=== PATIENT | female | born 1965 | race Caucasian/White ===

== ENCOUNTER 2019-01-30 05:22 | Day surgery (SDC) ==
--- NOTE | 2019-01-23 08:53 | EKG Report ---
Test Performed on : 01/23/2019 08:41:10 AM Test Reason : pat Blood Pressure : / mmHG Vent. Rate : 083 BPM Atrial Rate : 083 BPM P-R Int : 146 ms QRS Dur : 082 ms QT Int : 378 ms P-R-T Axes : 002 -11 008 degrees QTc Int : 444 ms Normal sinus rhythm. Minimal voltage criteria for LVH, may be normal variant Borderline ECG No previous ECGs available Confirmed by Chava CUNHA, P.J.M ([id number]) on 01/23/2019 3:12:53 PM
[2019-01-23 09:00] LABS: HEMATOCRIT 42.1 % (37.0-47.0); HEMOGLOBIN 13.9 g/dL (12.0-16.0); MCH 28.4 PG (27-31); MCV 85.9 FL (81-99); MPV 9.6 FL (7.4-10.4); RBC 4.9 XMIL (4.2-5.4); RDW 12.3 % (11.5-14.5); WBC 8.41 X1000 (4.8-10.8)
[2019-01-23 09:34] LABS: AGAP 15; BUN 23 mg/dL (8-22); CALCIUM 9.4 mg/dL (8.8-10.2); CHLORIDE 99 mmol/L (98-107); COSMO 285; CREATININE 0.7 mg/dL (0.5-0.9); ESTIMATED GFR > 60; GLUCOSE 131 mg/dL (70-104); POTASSIUM 3.9 mmol/L (3.5-5.1); SODIUM 140 mmol/L (136-145); TCO2 26 mmol/L (25-35)
[2019-01-30] MEDS ORDERED: LR 1,000 ML ONE (05:57)
[2019-01-30] MEDS ORDERED: PEPCID ONE (05:57)
[2019-01-30] MEDS ORDERED: REGLAN ONE (05:57)
[2019-01-30] MEDS ORDERED: FENTANYL ONE (06:09)
[2019-01-30] MEDS: VANCOMYCIN 1 GM/NS 1 GM/250 ML IVPB ONE ×2 (06:09→06:10)
[2019-01-30] MEDS ORDERED: DIPRIVAN 1% ONE (06:09)
[2019-01-30] MEDS ORDERED: VERSED ONE (06:10)
[2019-01-30] MEDS ORDERED: ALBUMIN 25% ONE (06:30)
[2019-01-30] MEDS ORDERED: MARCAINE 0.25% PF/EPI 1:200,000 ONE (06:36)
[2019-01-30] MEDS ORDERED: QUELICIN (DOSE) ONE (07:34)
[2019-01-30] MEDS ORDERED: ZOFRAN ONE (07:34)
[2019-01-30] MEDS ORDERED: DECADRON ONE (07:34)
[2019-01-30] MEDS ORDERED: OFIRMEV 1000 MG/ISOTONIC SOLN 1,000 MG/100 ML BOTTLE ONE (07:34)
[2019-01-30] MEDS ORDERED: XYLOCAINE-MPF 2% ONE (07:34)
[2019-01-30] MEDS ORDERED: NS 1,000 ML ONE (09:21)
[2019-01-30] MEDS: DILAUDID ONE ×2 (09:29→09:32)
[2019-01-30] MEDS ORDERED: FAMVIR PO PRN (10:11)
[2019-01-30] MEDS ORDERED: ZOFRAN IV PRN (10:11)
[2019-01-30] MEDS ORDERED: DILAUDID IV PRN (10:11)
[2019-01-30] MEDS: PROMETRIUM PO SCH (12:48)
[2019-01-30] MEDS: MAXZIDE-25 PO SCH (12:48)
[2019-01-30] MEDS: SINGULAIR PO SCH (12:48)
[2019-01-30] MEDS: NS 1,000 ML IV SCH ×2 (12:49→21:07)
[2019-01-30] MEDS ORDERED: MORPHINE IV PRN (17:07)
--- NOTE | 2019-01-30 18:25 | OPERATIVE NOTE ---
PROCEDURE DATE: 01/30/2019 PROCEDURE: Total thyroidectomy. SURGEON: Dr. Jose Luis Byrne. CONSTRUCTION MANAGEMENT ASSISTANT: Dr. Kamar Schmidt. PREOPERATIVE DIAGNOSIS: Nontoxic multinodular goiter. POSTOPERATIVE DIAGNOSIS: Nontoxic multinodular goiter, with symptoms. DESCRIPTION OF PROCEDURE: Satisfactory general endotracheal anesthesia was achieved. They did require a bougie to access the trachea. A small roll was placed behind the shoulders. The neck was gently extended. The anterior neck was prepped and draped in a sterile fashion. She was placed in a gentle reverse Trendelenburg position. The skin line was marked in the midline with 5 cm on each side of the midline in the skin line. We then anesthetized the skin with 0.25% Marcaine with epinephrine. We incised the skin in the area that was marked and carried our incision through the platysma. We achieved satisfactory hemostasis with electrocautery in the subcutaneous tissue and the platysma. We grasped the platysma with No clamps and then developed a subplatysmal plane to the thyroid prominence, inferiorly to the sternal notch. Gelpi retractors were placed on both sides. We then addressed the cervical fascia in the midline and used electrocautery to incise the cervical fascia. We then dissected the right thyroid lobe first because it had the most nodules. We retracted the strap muscles laterally and then dissected on each side of the superior pole until we could clamp the superior pole. We then used a LigaSure peripheral to that to cauterize and ligate the superior pole vessels. We left our Lois clamp on the superior pole to help roll the gland medially. We then identified the trachea inferiorly. We then began rolling the gland toward the midline and we dissected laterally, then posteriorly. We identified what we thought was the superior parathyroid and protected it from harm and saved it. We dissected and identified the recurrent nerve and protected it from harm. We then stayed close to the gland as we rolled it medially, treating the small vessels with electrocautery or the small LigaSure as we rolled the gland medially. Even though the inferior parathyroid was not identified, we stayed close to the gland, so we felt that we preserved it satisfactorily. We continued to dissect from caudad to craniad until the gland was completely released from the trachea and the thyroid cartilage. Again, we stayed away from the nerve to protect it from harm. There was one hemorrhagic nodule in the right side. There was a large nodule in the lower portion the isthmus. I then went to the left side and we did a similar procedure on the left side, first dissecting the superior pole, using the LigaSure to cauterize and divide the superior pole. We then rolled it medially and again preserved what we thought was the superior parathyroid as we rolled the gland. The inferior parathyroid was not definitely identified, but we stayed very close to the gland as we had done on the right side. We continued to stay close to the gland, dissecting the tissue away from the gland until we could roll the gland medially and ultimately amputate it as well, taking care not to injure the recurrent nerve. The gland was then marked with a stitch in this right superior pole. There was a nodule in the left superior gland that was within the specimen as well. We irrigated. Hemostasis was satisfactory. We placed a Sidney drain within the wound, placing a part of the drain on each thyroid lobe fossa. We secured the drain to the skin with a 2-0 silk. We then closed the cervical fascia in the midline with 3-0 Polysorb. We closed the platysma with interrupted 3-0 Polysorb. We once again injected 0.25% Marcaine with epinephrine in the subcutaneous tissue and closed the skin with a 4-0 Polysorb subcuticular stitch. Telfa and sterile dressing were applied. She tolerated it well and was sent to the recovery room in satisfactory condition. cc: Jose Luis Byrne MD
[2019-01-30] MEDS: NORCO-10 PO PRN (21:07)
[2019-01-30] MEDS: PERIDEX MT SCH (21:07)
[2019-01-31] MEDS: NORCO-10 PO PRN (03:23)
[2019-01-31] MEDS ORDERED: SYNTHROID PO SCH (07:00)
--- NOTE | 2019-01-31 08:27 | GENERAL SURGERY PROGRESS NOTE ---
DATE: 01/30/2019 SUBJECTIVE: She is sitting up. She is not hoarse. Her neck is not swollen. Her only complaint is nausea, and seems to be associated with the pain medicine. PLAN: The plan will be to change her IV pain medication to something different to see if we can find something that does not cause nausea. Her [place]'s sign is a negative sign. cc: Jose Luis Byrne MD
[2019-01-31] MEDS: PERIDEX MT SCH (10:06)
[2019-01-31] MEDS: MAXZIDE-25 PO SCH (10:06)
[2019-01-31] MEDS: SINGULAIR PO SCH (10:06)
[2019-01-31] MEDS: PROMETRIUM PO SCH (10:10)
[2019-01-31 11:30] VITALS: BP 104/56
--- NOTE | 2019-01-31 18:08 | GENERAL SURGERY PROGRESS NOTE ---
DATE: 01/31/2019 SUBJECTIVE: She is postop day 1 after a total thyroidectomy. This morning she is doing generally well. Her nausea is resolved OBJECTIVE: Vital Signs: She is afebrile. Heart rate 68, blood pressure 100/53. HEENT: She has no [place] sign. LABORATORY DATA: Her calcium was 8.3 postop. PLAN: The plan is to remove her drain and discharge her. We discussed activity and diet. She will return to see me in the office in a week. We will put her on L-thyroxine 100 mcg daily. cc: Jose Luis Byrne MD
== END 2019-01-31 12:33 | disposition home or self-care (01) ==
LOC: OR 05:22 → 4N 05:22 → OR 01-31 12:33
PROVIDERS: ATTEND Surgery
PROC: GE.THYR (2019-01-30 06:57)

== ENCOUNTER 2019-02-01 22:27 | Inpatient (IN) ==
--- NOTE | 2019-02-01 22:51 | PROVIDER DOCUMENTATION ---
HPI-General Adult - General Chief Complaint: General Adult Stated Complaint: EXTREMITY NUMBNESS Time Seen by Provider: 02/01/19 22:40 Source: patient Allergies/Adverse Reactions: Patient Allergies Allergy/AdvReac Type Severity Reaction Status Date / Time cephalexin monohydrate * Allergy Severe HIVES Verified 02/01/19 22:38 [From Keflex] ciprofloxacin [From Cipro] Allergy Severe HIVES Verified 02/01/19 22:38 ciprofloxacin HCl * Allergy Severe HIVES Verified 02/01/19 22:38 [From Cipro] levofloxacin [From Levaquin] Allergy Severe SWELLING Verified 02/01/19 22:38 Sulfa (Sulfonamide Allergy Severe SWELLING Verified 02/01/19 22:38 Antibiotics) Penicillins Allergy HIVES Verified 02/01/19 22:38 prochlorperazine edisylate * Allergy ANAPHYLAXIS Verified 02/01/19 22:38 [From Compazine] prochlorperazine maleate * Allergy ANAPHYLAXIS Verified 02/01/19 22:38 [From Compazine] lysol AdvReac asthma Uncoded 02/01/19 22:38 attack Home Medications: Home Medication List Medication Instructions Recorded Confirmed Last Taken Type Triamterene/Hctz [Maxzide-25] 1 each PO DAILY 09/15/14 01/30/19 01/26/19 08:00 History Albuterol Sulfate [Proair Hfa] 2 puff INHALATION 4XDAY PRN PRN 01/23/19 01/30/19 01/29/19 20:00 History Famciclovir 500 mg PO PRN PRN 01/23/19 01/30/19 Unknown History Montelukast Sodium [Singulair] 10 mg PO DAILY 01/23/19 01/30/19 01/29/19 21:00 History Progesterone [Prometrium] 100 mg PO DAILY 01/23/19 01/30/19 01/29/19 22:00 History Levothyroxine [Synthroid] 100 microgm PO DAILY@0700 #100 tab 01/31/19 Unknown Rx Tramadol [Ultram] 50 mg PO Q6H PRN PRN #20 tab 01/31/19 Unknown Rx - History of Present Illness -Gen Adult Nature of Presenting Problems: 53 YOF PRESENTS WITH C/O TINGLING AND NUMBNESS ON FACE AND BILATERAL HANDS. REP ORTS SHE HAD THYROIDECTOMY AND WAS DC'D HOME YESTERDAY. SHE HAS CALLED SURGEON WITHOUT CALLBACK AND HAS TAKEN TUMS X 5 TODAY WITHOUT IMPROVEMENT IN SYMPTOMS. SHE DENIES CP, SOB, FOCAL WEAKNESS. Severity: reports: moderate Onset/Duration: reports: this morning Timing: reports: still present Context/Activities at Onset: reports: other (RECENT THYROIDECTOMY) Modifying Factors: worse with: antacids Similar Symptoms Previously?: No Recently seen or treated by another doctor?: Yes Review of Systems - Adult - REVIEW OF SYSTEMS - ADULT Constitutional: reports: no symptoms reported. denies: see HPI, chills, fever, fatique, night sweats, weight gain, weight loss, other Eyes: reports: no symptoms reported. denies: see HPI, discharge, dry eyes, decreased vision, blurred vision, double vision, eye pain, redness, other Ears, Nose, Mouth & Throat: reports: no symptoms reported. denies: see HPI, ear discharge, ear pain, hearing loss, tinnitus, epistaxis, sinus problem, nose pain, loose teeth, mouth/dental pain, mouth swelling, hoarseness, throat pain, throat swelling, other Cardiovascular: reports: no symptoms reported. denies: see HPI, chest pain, edema, heart murmur, irregular heart rate, orthopnea, palpitations, poor circulation, PND, syncope, other Respiratory: reports: no symptoms reported. denies: see HPI, chronic cough, cough, dyspnea on exertion, excessive sputum production, hemoptysis, pleurisy, shortness of breath, wheezing, other Gastrointestinal: reports: no symptoms reported. denies: see HPI, abdominal pa in, hematemesis, constipation, diarrhea, difficulty swallowing, frequent heartburn, nausea, poor appetite, rectal bleeding, vomiting, other Genitourinary: reports: no symptoms reported. denies: see HPI, dysuria, discharge, frequency, flank pain, frequent UTI's, hematuria, hesitency, incontinence, urinary retention, urgency, other Musculoskeletal: reports: see HPI. denies: no symptoms reported, bone pain, back pain, frequent leg cramps, joint pain, joint swelling, muscle aches, muscle weakness, neck pain, other Integumentary: reports: no symptoms reported. denies: see HPI, hives, hair loss, itching, mole changes, nail changes, rash, skin sores/ulcer, skin thickening, other Neurological: reports: see HPI, paresthesia (FACIAL AND BILATERAL HANDS). denies: no symptoms reported, ataxia, dizziness/vertigo, headache/migraines, loss of balance, numbness, seizure, slurred speech, syncope, tremors, other Psychiatric: reports: no symptoms reported. denies: see HPI, anxiety, anti- depressant use, alcohol/drug dependence, depression, emotional problems, insomnia, panic attacks, suicidal thoughts, other Endocrine: reports: no symptoms reported. denies: see HPI, change in skin pigment, excessive sweating, goiter, cold intolerance, heat intolerance, increased hunger, increased thirst, polyuria, other Hematologic/Lymphatic: reports: no symptoms reported. denies: see HPI, blood clots, easy bruising, low blood count, lymphedema, prolonged bleeding, swollen lymph nodes, transfusions, other Allergic/Immunologic: reports: no symptoms reported. denies: see HPI, allergic reactions, allergic rhinitis, asthma, eczema, food allergy, frequent infections, hay fever, hives, positive PPD, urticaria, other Past History - Adult - PAST MEDICAL HISTORY-ADULT Review of Records: reports: Nursing Assessment Review, Social history reviewed & non-contributory. Major Childhood Illnesses: reports: denies history Cardiovascular: reports: HTN Respiratory: reports: denies history Gastrointestinal: reports: denies history Genitourinary: reports: denies history Musculoskeletal: reports: denies history Neurological: reports: denies history Endocrine/Immune: reports: denies history Other Conditions: reports: denies history - PRIOR SURGERIES/PROCEDURES Surgical/Procedure History: reports: hysterectomy - IMMUNIZATION STATUS Childhood Immunizations: See Nurse Assessment Flu Vaccine: See Nurse Assessment - FAMILY HISTORY Family History: reviewed, not pertinent Physical Exam-General - PHYSICAL EXAM-ADULT Initial Vital Signs Reviewed: Yes - CONSTITUTIONAL General Appearance: appears well, alert, no apparent distress - EYES Eyes: PERRL/EOMI, pink conjunctivae - HEAD, EARS, NOSE, MOUTH & THROAT HENMT: normocephalic/atraumatic, moist mucous membranes, normal ENT inspection - NECK Neck: non-tender, full range of motion, supple - RESPIRATORY Respiratory: chest non-tender, lungs clear, normal breath sounds, no pleuratic chest pain, no respiratory distress, no accessory muscle use - CARDIOVASCULAR Cardiovascular: normal peripheral pulses, regular rate, rhythm, no edema - GASTROINTESTINAL (ABDOMEN) Abdominal Exam: normal bowel sounds, non tender, soft - LYMPHATIC Lymphatic: no adenopathy - MUSCULOSKELETAL Back Exam: normal inspection Extremity: normal range of motion, non-tender, normal gait, other (+ TROUSSEAUS SIGN WHEN BP CUFF INFLATED) Peripheral Pulses: radial (R): 2+, radial (L): 2+ - SKIN Integumentary: normal color, normal turgor, warm/dry, other (HEALING SURGICAL WOUND TO NECK, NO REDNESS OR DRAINAGE) - NEUROLOGIC Neurologic: grossly normal, other. negative: aphasia, facial droop, focal weakness, motor weakness - PSYCHIATRIC Psych/Mental Status: normal mood/affect, oriented x 3 Progress - PLAN OF CARE/RESULTS Progress/Plan/Lab Results: Vital Signs - 8 hr 02/01/19 22:35 Temperature 98.7 F Pulse Rate 83 Respiratory Rate 18 Blood Pressure 136/79 O2 Sat by Pulse Oximetry 98 Orders Category Date Time Status CBC WITH ELECTRONIC DIFF [HEME] Stat Lab 02/01/19 22:40 Uncollected COMPREHENSIVE METABOLIC PANEL [CHEM] Stat Lab 02/01/19 22:40 Uncollected FREE T4 Stat Lab 02/01/19 22:40 Uncollected TSH Stat Lab 02/01/19 22:40 Uncollected Result Diagrams: 02/01/19 22:55 02/01/19 22:55 - EKG 1 Time of EKG reading by physician:: 23:04 EKG Read and Signed by:: Richy Kaye EKG Interpretation (*Must complete 3 of following elements*): Abnormal Rate: 68 Rhythm: NSR [place]: normal QRS: normal [place] Interval: normal ST Wave: normal Prior EKG Comparison: unchanged from prior - CONSULTS/PCP/HOSPITALIST Notification #1 *Consult/PCP/Hospitalist*: DR. OROZCO Time Discussed: 23:48 Reason/Comments: 2 G CALCIUM TUMS 4 X DAILY REPEAT CA IN AM, ADMIT TO HOSPITALIST AT Consult Disposition: Admit #2 Consult: DR Purnima VALLADARES Time Discussed: 00:01 Consult Disposition: Admit Departure - Departure Date of Disposition Decision: 02/02/19 Time of Disposition Decision: 00:01 DIAGNOSIS: Hypocalcemia, Status post thyroidectomy Disposition: ADMITTED INPATIENT 09 Certified Medical Emergency: Emergent Condition: Stable Referrals and Follow-Ups: Kj Greenfield MD [Primary Care Provider] - - Critical Care Note This patient required my direct & personal management of CC.: No Attestation - Physician/ JOEL Attestation Patient care was provided by Advanced Practice Provider:: Yes Advanced Practice Provider:: Marylin Byrne Advanced Practice Provider documentation review:: The Mid-level provider documentation, treatment plan and medical decision making was reviewed by the physician who agrees with all treatment and medical decision making by the MLP. The physician spent face to face time with patient:: No Advanced Practice Provider documentation review:: Supervising physician onsite and consulted in the evaluation and care of this patient. The physician did not have a face to face encounter with the patient.
[2019-02-01 23:04] LABS: BASO# 0.03 X1000 (0.0-0.2); BASO% 0.3 % (0.0-0.8); EOS# 0.26 X1000 (0.0-0.7); EOS% 2.9 % (0.0-10.0); HEMATOCRIT 36.9 % (37.0-47.0); HEMOGLOBIN 11.7 g/dL (12.0-16.0); IMM GRAN# 0.03 X1000 (0.0-0.04); IMM GRAN% 0.3 % (0.0-0.5); LYMPH# 2.75 X1000 (1.2-3.4); LYMPH% 30.2 % (20.5-51.1); MCH 27.4 PG (27-31); MCHC 31.7 g/dL (33-37); MCV 86.4 FL (81-99); MONO# 0.69 X1000 (0.11-0.59); MONO% 7.6 % (1.7-9.3); MPV 10.2 FL (7.4-10.4); NEUT# 5.36 X1000 (1.4-6.5); NEUT% 58.7 % (42.2-75.2); PLT 264 X1000 (130-400); RBC 4.27 XMIL (4.2-5.4); WBC 9.12 X1000 (4.8-10.8)
[2019-02-01 23:29] LABS: ALBUMIN 3.9 g/dL (3.5-5.0); MAGNESIUM 1.6 mg/dL (1.5-2.7); POTASSIUM 3.4 mmol/L (3.5-5.1); TOTAL BILIRUBIN 0.3 mg/dL (0.20-1.00); TOTAL PROTEIN 6.7 g/dL (6.3-8.3)
[2019-02-01 23:30] LABS: CALCIUM 6.8 mg/dL (8.8-10.2)
[2019-02-01] MEDS ORDERED: CALCIUM GLUCONATE 2 GM in NS 100 ML IV ONE (23:34)
[2019-02-01 23:35] LABS: FREE T4 1.58 ng/dL (0.93-1.70); TSH 5.03 uIUmL (0.27-4.20)
[2019-02-02] MEDS ORDERED: ZOFRAN IV PRN (03:38)
[2019-02-02] MEDS ORDERED: TYLENOL PO PRN (03:38)
--- NOTE | 2019-02-02 04:54 | EKG Report ---
Test Performed on : 02/01/2019 11:02:27 PM Test Reason : LOW CA Blood Pressure : / mmHG Vent. Rate : 068 BPM Atrial Rate : 068 BPM P-R Int : 140 ms QRS Dur : 080 ms QT Int : 408 ms P-R-T Axes : 003 -16 001 degrees QTc Int : 433 ms Normal sinus rhythm. Minimal voltage criteria for LVH, may be normal variant Cannot rule out Anterior infarct , age undetermined Abnormal ECG When compared with ECG of 23-JAN-2019 08:41, No significant change was found Unconfirmed Result
[2019-02-02] MEDS: SYNTHROID PO SCH (06:03)
[2019-02-02] MEDS: ULTRAM PO PRN ×2 (06:03→20:31)
[2019-02-02] MEDS: MAXZIDE-25 PO SCH (08:51)
[2019-02-02] MEDS: ROCALTROL PO SCH ×2 (08:51→20:30)
[2019-02-02] MEDS: TUMS PO SCH ×3 (08:55→17:53)
[2019-02-02] MEDS ORDERED: SINGULAIR PO SCH (09:00)
[2019-02-02] MEDS ORDERED: PROMETRIUM PO SCH (09:00)
[2019-02-02] MEDS: KLOR-CON PO SCH ×2 (15:39→20:31)
--- NOTE | 2019-02-02 15:59 | HISTORY AND PHYSICAL ---
PRIMARY CARE PHYSICIAN: Dr. Greenfield. CHIEF COMPLAINT: Face tingling, numbness. HISTORY OF PRESENTING ILLNESS: A 53-year-old female with a history of multinodular goiter, hypertension, asthma, sleep apnea, who recently underwent total thyroidectomy and was just discharged a day ago, presented to [facility] with complaint of having facial tingling, extremities numbness. She was evaluated there. She was found to be hypoglycemic and her case was discussed with general surgeon and due to lack of beds there, she was transferred to [facility] for further management. The patient was given IV calcium gluconate while she was at [facility]. At the time of my examination, patient had denied any headache, fever, chills, chest pain, shortness of breath, hemoptysis but complained of sore face, numbness and tingling. PAST MEDICAL HISTORY: Includes multinodular goiter, hypertension, asthma, sleep apnea. PAST SURGICAL HISTORY: Abdominal surgery, cholecystectomy, hysterectomy, sinus surgery, tonsillectomy. ALLERGIES: Penicillin, sulfa, Cipro, Levaquin, Keflex. CURRENT MEDICATIONS: Include albuterol inhaler 4 times a day, levothyroxine 100 mcg p.o. daily, Singular 10 mg p.o. daily, progesterone 100 mg p.o. daily, tramadol 50 mg p.o. q.6 hours, Maxzide 25 mg 1 p.o. daily. SOCIAL HISTORY: No history of smoking, alcohol or illicit drug use. FAMILY HISTORY: No history of coronary disease. REVIEW OF SYSTEMS: Fourteen point review of system as listed in HPI. Other systems negative. PHYSICAL EXAMINATION: GENERAL: Cooperative, friendly female. She is resting more comfortably now. VITAL SIGNS: Temperature 98.2 degrees, pulse 67, respirations 20, blood pressure 140/68. HEENT: Atraumatic, normocephalic. Extraocular movements intact. PERRLA. NECK: No masses. CHEST: Clear to auscultation. CARDIOVASCULAR: Regular rate and rhythm. S1, S2. ABDOMEN: Soft. Positive bowel sounds. EXTREMITIES: No edema. NEUROLOGIC: She is awake, alert, oriented x3. : No bladder distention. SKIN: Warm. LABORATORIES AND STUDIES: WBCs 9.12, hemoglobin 11.7, hematocrit 36.9, platelets 264,000. Sodium 137, potassium 3.4, chloride 97, CO2 25, BUN is 23, creatinine is 1.0, glucose 145, calcium is 6.8. ASSESSMENT: This is a 53-year-old female with a history of multinodular goiter, hypertension, asthma, sleep apnea, who apparently went thyroidectomy several days ago. She was just discharged from hospital. She returned to [facility] initially with complaint of face tingling and numbness. She was evaluated there. She was found to be hypoglycemic and due to lack of bed availability there, she was transferred to [facility] for further evaluation management. ASSESSMENT: 1. Post thyroidectomy hypocalcemia. 2. Hypertension. 3. Asthma. 4. Sleep apnea. PLAN: 1. We will admit patient to medical floor with telemetry. 2. We will continue with calcium carbonate and also calcitriol. 3. We will monitor blood pressure closely. 4. Will continue with duo nebs p.r.n. 5. The patient to bring her CPAP machine if she is in the hospital for more days. 6. We will put patient on DVT prophylaxis with SCDs. 7. We will continue to follow and reassess. Make further recommendation based on patient's clinical course. cc: Rene Zamarripa MD
--- NOTE | 2019-02-02 20:10 | GENERAL SURGERY CONSULTATION ---
DATE: 02/02/2019 REQUESTING PHYSICIAN: Emergency Department. REASON FOR CONSULTATION: Hypocalcemia status post total thyroidectomy. HISTORY OF PRESENT ILLNESS: A 53-year-old female status post total thyroidectomy on 01/30/2019. The patient had been home, developed some numbness and tingling. She went to the emergency department. They saw her, evaluated her, found that her calcium was 6.8. She was started on IV calcium and given Tums. She has been admitted. She is feeling a little bit better, but still having some numbness and tingling. PAST MEDICAL HISTORY: Includes multinodular goiter. PAST SURGICAL HISTORY: Includes recent thyroidectomy. ALLERGIES: Penicillin, sulfa, cephalosporins. FAMILY HISTORY: Positive for diabetes, heart disease, hypertension. SOCIAL HISTORY: Nonsmoker. HOME MEDICATIONS: Reviewed. REVIEW OF SYSTEMS: A full 14-systems reviewed and negative, except as specified in the HPI. PHYSICAL EXAMINATION: Vital Signs: Patient is currently afebrile. Vital signs stable. General: No acute distress. HEENT: Normocephalic, atraumatic. Pupils equal, round, reactive to light. Mucous membranes moist. Oropharynx benign. Neck: Incision healing well. Cardiovascular: Regular rate and rhythm. Lungs: Grossly clear. Abdomen: Soft, nontender, nondistended. Extremities: Moves all extremities. Neurologic: Grossly intact. Skin: No signs of jaundice. Vascular: All extremities perfused. LABORATORY DATA: Of note, calcium was 6.8 yesterday evening. ASSESSMENT AND PLAN: A 53-year-old female with hypocalcemia, status post total thyroidectomy. Hypocalcemia: At this time, agree with placing the patient on telemetry, supplementing her calcium with Tums. She did get some IV calcium gluconate. We will continue to follow her and trend her labs. She may need repeat doses of IV calcium if it continues to stay low and we will continue to monitor. She seems to be doing okay at this point. cc: Boni Schmidt MD
--- NOTE | 2019-02-03 01:20 | PROGRESS NOTE ---
DATE: 02/02/2019 INTERVAL HISTORY: Ms. Campo was admitted for post thyroidectomy hypocalcemia. She received intravenous calcium yesterday and has been on oral calcium. SUBJECTIVE: Ms. Campo is feeling better. She denies any more tingling, numbness affecting face and arms. She is complaining of some headache, though. She denies any chest pain or shortness of breath. VITALS: Temperature 98.6 degrees, pulse 75, respiratory 20, blood pressure 120/60, saturating 98% on room air. PHYSICAL EXAMINATION: General: Not in any acute distress. HEENT: Oral cavity is moist. No perioral numbness or twitching on tapping on the jaw. Neck: Horizontal scar of recent thyroidectomy on the appears to be intact. Lungs: Air entry bilaterally equal. No wheeze, rhonchi, crackles. Cardiovascular: S1, S2 normal. No murmur or gallop. Abdomen: Soft, nontender. Extremity: No lower extremity edema. Neurologic: She is alert and oriented x3. She is able to perform fine and gross motor activities of bilateral upper extremities. LABS: CBC is rather unremarkable. She does have low potassium. She has a creatinine of 1. Calcium of 6.8. Electrocardiogram did not have any QT interval prolongation with QTc of 433 milliseconds. ASSESSMENT AND PLAN: 1. Post thyroidectomy hypocalcemia. Apparently, according to the report given to me by the patient, two of her parathyroids were removed. Her hypocalcemia was symptomatic, status post intravenous calcium. Follow up magnesium level, parathyroid hormone level. I will keep her on oral calcium supplements as well as calcitriol. I will also follow up with magnesium level and I will replete it as needed. I am repeating her potassium as well. 2. Others: Continue levothyroxine for post thyroidectomy hypothyroidism; montelukast, which is her home medication; progesterone, tramadol and hydrochlorothiazide with triamterene for her essential hypertension. DISPOSITION: I will monitor her inside the hospital for today. If she is symptom-free, I will let her go home tomorrow. She is in agreement with the plan. cc: Aaron Smith MD
[2019-02-03] MEDS: SYNTHROID PO SCH (06:08)
[2019-02-03 06:42] LABS: BASO# 0.04 X1000 (0.0-0.2); BASO% 0.4 % (0.0-0.8); EOS# 0.55 X1000 (0.0-0.7); EOS% 5.6 % (0.0-10.0); HEMATOCRIT 41.1 % (37.0-47.0); HEMOGLOBIN 13.3 g/dL (12.0-16.0); IMM GRAN# 0.04 X1000 (0.0-0.04); IMM GRAN% 0.4 % (0.0-0.5); LYMPH# 2.69 X1000 (1.2-3.4); LYMPH% 27.2 % (20.5-51.1); MCH 27.7 PG (27-31); MCHC 32.4 g/dL (33-37); MCV 85.6 FL (81-99); MONO# 0.66 X1000 (0.11-0.59); MONO% 6.7 % (1.7-9.3); MPV 10.2 FL (7.4-10.4); NEUT% 59.7 % (42.2-75.2); PLT 305 X1000 (130-400); RDW 12.1 % (11.5-14.5); WBC 9.88 X1000 (4.8-10.8)
[2019-02-03 07:09] LABS: AGAP 16; BUN 20 mg/dL (8-22); CALCIUM 7.9 mg/dL (8.8-10.2); CHLORIDE 97 mmol/L (98-107); COSMO 277; CREATININE 0.9 mg/dL (0.5-0.9); ESTIMATED GFR > 60; GLUCOSE 109 mg/dL (70-104); POTASSIUM 4.1 mmol/L (3.5-5.1); SODIUM 137 mmol/L (136-145); TCO2 24 mmol/L (25-35)
[2019-02-03 08:03] VITALS: BP 95/55
[2019-02-03] MEDS: ROCALTROL PO SCH (09:12)
[2019-02-03] MEDS: TUMS PO SCH (09:13)
[2019-02-03] MEDS: MAXZIDE-25 PO SCH (09:13)
--- NOTE | 2019-02-03 10:02 | GENERAL SURGERY PROGRESS NOTE ---
DATE: 02/03/2019 SUBJECTIVE: Patient is doing a little bit better. She is not having as much tingling. OBJECTIVE: Vital Signs: Patient is currently afebrile. Her vital signs are stable. General Examination: No acute distress. Cardiovascular: Regular rate and rhythm. Lungs: Grossly clear. Neck: Incision seems to be healing well. Laboratory Data: Most recent calcium was 9.1, magnesium was 1.7, phosphorus was 7.1. These were all yesterday. ASSESSMENT AND PLAN: A 53-year-old female with hypocalcemia, status post total thyroidectomy. Hypocalcemia. At this time, it is likely related to just her parathyroid glands being shocked after the surgery. I suspect this will come around. We will keep her on supplemental calcium. I suspect if her calcium remains normal today, she can likely be safely discharged and have a quick followup with Dr. Byrne. cc: Boni Schmidt MD
--- NOTE | 2019-02-03 15:49 | DISCHARGE SUMMARY ---
ADMISSION DATE: 02/02/2019 DISCHARGE DATE: 02/03/2019 DISCHARGE DISPOSITION: Home. DISCHARGE CONDITION: Hemodynamically stable. Her circumoral numbness and tingling has significantly resolved. She does have mild tingling of her arms which she thinks is improving. I counseled her about taking calcium, avoiding anti acid medications and taking calcitriol. I also provided her prescription for getting repeat calcium done within 3 days, answered all of her questions. DISCHARGE DIAGNOSES: Post thyroidectomy hypocalcemic tetany like features on presentation. OTHER DIAGNOSES: 1. History of thyroid nodules status post total thyroidectomy for nontoxic multinodular goiter with dysphagia symptoms. 2. History of essential hypertension. 3. Asthma. 4. History of sleep apnea. DISCHARGE MEDICATIONS: 1. Famciclovir 500 mg p.o. as needed. 2. Triamterene hydrochlorothiazide 25 mg 1 tablet daily. 3. Albuterol sulfate 2 puffs inhaled as needed for shortness of breath. 4. Progesterone 100 mg daily. 5. Montelukast 10 mg daily. 6. Calcitriol 0.5 mcg b.i.d. 10 capsules have been prescribed. 7. Levothyroxine 100 mcg daily. 8. Calcium carbonate chewable 500 mg t.i.d. 15 tablets have been prescribed. 9. Tramadol 50 mg every 6 hours as needed. Vitals at the time of discharge temperature 97.8 degrees, pulse 71, respiratory 20, blood pressure 95/55, saturating 97% room air. PHYSICAL EXAMINATION: Not in acute distress. Oral cavity is moist. Her thyroidectomy scar is healing well. Air entry bilaterally equal. No wheeze, rhonchi, crackles. S1, S2 normal. No murmur or gallop. Abdomen soft, nontender. No lower extremity edema. She is alert, oriented x3. She is able to walk in the hallway without support. LAB: At the time of discharge hemoglobin 13.3, WBC 9.8, platelet 305,000, potassium 4.1, BUN 20, creatinine 0.9, calcium 7.9, blood glucose 109. TSH 4.3, PTH or parathormone 4, vitamin D25 hydroxy 19.6, no microbiology. SIGNIFICANT IMAGING: None. Electrocardiogram on presentation had normal sinus rhythm, QTc of 433. HOSPITAL COURSE SUMMARY: Ms. Campo is 53 years old lady who had total thyroidectomy for nontoxic multinodular goiter with dysphagia symptoms on 01/30/2019 who was discharged on oral thyroid and calcium supplement came in on 02/01/2019 with chief complaints of perioral numbness, tingling as well as tingling and numbness affecting bilateral upper extremities which did not get better despite taking Calcium supplements at home. In the emergency room she was found to have calcium level of 6.8 so she was given intravenous calcium and hospitalist team was consulted further management. She was started on oral calcitriol and oral calcium carbonate supplements. Her intact parathormone level was 4. After calcitriol and oral calcium supplement her calcium 24 to 36 hour later increased to 7.9 and her symptoms of perioral numbness had decreased. She had some tingling of bilateral upper extremities which was better than presentation and it was improving so it was decided to discharge her on oral calcitriol and oral calcium. Proper education was provided to her about symptoms of hypocalcemia and she was also provided with lab slip to get repeat calcium done on 02/06/2019 and she is supposed to follow up with Dr. Byrne on February 06. All of her questions answered. TIME SPENT: Less than 30 minutes. cc: Aaron Smith MD [id number]
== END 2019-02-03 12:05 | disposition home or self-care (01) | DRG 641 ==
LOC: P.ED 22:27 → SUATTDRO 02-02 00:01 → 4N 02-02 00:01
PROVIDERS: ATTEND Internal Medicine